=== PATIENT | female | born 1960 | race Caucasian/White ===

== ENCOUNTER → 2017-07-17 | Outpatient (CLI) | payer OTHER ==
[~2017-07-17] MED LIST: ACETAMINOPHEN650 M5 PO; ASPIRIN325 PO; CILOSTAZOL 100100 MG; COREG6.25 MG PO; DIOVAN PO; FISHOIL; FUROSEMIDE 20 M20 M1; GLUCOPHAGE1000 MG OR; GLUCOTROL5 MG PO; IMDUR 30 MG TAB30 M1 PO; JANUMET XR 1001 EACH PO; JANUMET XR 50-1 EACH PO; JANUVIA100 MG; NIACIN400 MG PO; NICORETTE2 MG OR; NITROGLYCERIN0.4 MG SL; NORCO 5-325 TA1 EACH PO; PLAVIX 75 MG TA75 MG OR; POTASSIUM99 M1 PO; SIMVASTATIN80 MG PO; SPIRONOLACTONE25 M1 PO; VITAMIN D-32000 UNIT PO
== END ==
LOC: M.NUC 07:02
DX: R10.13 Epigastric pain (principal)

== ENCOUNTER 2017-12-05 01:49 | Emergency (ER) | payer OTHER ==
[~2017-12-05] VITALS: Ht 154.9 cm; Wt 59.0 kg
[~2017-12-05 01:49] MED LIST changes: -JANUMET XR 1001 EACH PO; -NORCO 5-325 TA1 EACH PO
[2017-12-05] MEDS ORDERED: JANUMET XR 1001 EACH PO (02:05)
[2017-12-05 02:27] LABS: ABSOLUTE EOSINOPHILS 0.1 thou/uL (0.0-0.7); ABSOLUTE LYMPHOCYTES 2.1 thou/uL (0.8-5.3); ABSOLUTE MONOCYTES 0.8 thou/uL (0.0-1.2); ABSOLUTE NEUTROPHILS 6.3 thou/uL (1.6-8.1); BASOPHILS 0.5 %; EOSINOPHILS 0.8 %; HEMATOCRIT 42.2 % (37.0-47.0); HEMOGLOBIN 14.3 gm/dL (12.0-15.0); LYMPHOCYTES 22.6 %; MCH 31.6 pg (26.0-34.0); MCHC 33.9 g/dL (28.0-37.0); MCV 93.2 fL (80.0-100.0); MONOCYTES 8.6 %; MPV 7.9 fl. (7.2-11.1); NUCLEATED RBCS 0 /100WBC; PLATELET COUNT* 285 thou/uL (150-400); POLYS 67.5 %; RBC 4.52 mil/uL (4.20-5.00); RDW-CV 13.8 % (10.5-14.5); WBC 9.3 thou/uL (4.0-11.0)
[2017-12-05 02:35] LABS: ANION GAP 7 mmol/L (7-16); BUN 20 mg/dL (7-18); CHLORIDE 99 mmol/L (98-107); CO2 27 mmol/L (21-32); GLUCOSE 335 mg/dL (70-99); POTASSIUM 4.3 mmol/L (3.5-5.1); SODIUM 133 mmol/L (136-145)
[2017-12-05 02:42] LABS: ALBUMIN 3.3 g/dL (3.4-5.0); ALKALINE PHOSPHATASE 79 U/L (46-116); LIPASE 97 U/L (73-393); SGOT 17 U/L (15-37); SGPT 20 U/L (30-65); TOTAL BILIRUBIN 0.5 mg/dL (<0.1-1.0); TOTAL PROTEIN 6.9 g/dL (6.4-8.2); TROPONIN-I LEVEL <0.06 ng/mL (<0.06)
[2017-12-05 03:46] LABS: URINE BILIRUBIN NEGATIVE (Negative); URINE BLOOD NEGATIVE (Negative); URINE CLARITY CLEAR; URINE COLOR STRAW; URINE GLUCOSE-RANDOM 3+ (Negative); URINE KETONES NEGATIVE (Negative); URINE LEUKOCYTES-REFLEX NEGATIVE (Negative); URINE NITRITE-REFLEX NEGATIVE (Negative); URINE PROTEIN NEGATIVE (Negative); URINE SPECIFIC GRAVITY <= 1.005 (1.005-1.030); URINE UROBILINOGEN 0.2 E.U./dl (0.2-1.0)
[2017-12-05] MEDS ORDERED: NORCO 5-325 TA1 EACH PO (03:52)
[2017-12-05 04:14] VITALS: BP 147/60
--- NOTE | 2017-12-05 13:01 | EKG ---
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1960 Requested By: Shayne Oh Order Number: [id number] MD: Gene Buckley Measurements Intervals [place] Rate: 70 P: 12 MD: 134 QRS: 0 QRSD: 111 T: -82 QT: 433 QTc: 468 Interpretive Statements Sinus rhythm Anterior infarct, old Nonspecific T abnormalities, lateral leads Compared to ECG 08/29/2016 15:04:21 No significant changes Electronically Signed On 12-05-2017 13:01:09 CDT by Gene Buckley [email or web address] <ELECTRONICALLY SIGNED> By: Gene Buckley MD, [facility] 12/05/17 1301 [id number] Gene Buckley MD, FACC /EPI
== END 2017-12-05 04:15 | disposition home or self-care (01) ==
LOC: M.ERS 01:49
PROVIDERS: Family Medicine
DX: R10.13 Epigastric pain (principal); E11.9 Type 2 diabetes mellitus without complications; J44.9 Chronic obstructive pulmonary disease, unspecified; F17.210 Nicotine dependence, cigarettes, uncomplicated; Z95.5 Presence of coronary angioplasty implant and graft; Z88.2 Allergy status to sulfonamides; Z98.890 Other specified postprocedural states

== ENCOUNTER 2017-12-19 17:02 | Inpatient (IN) | payer OTHER ==
[~2017-12-19] VITALS: Ht 154.9 cm; Wt 56.4 kg
[~2017-12-19 17:02] MED LIST changes: +JANUMET XR 1001 EACH PO; +NORCO 5-325 TA1 EACH PO
[2017-12-19 17:25] VITALS: BP 140/70
--- NOTE | 2017-12-19 18:10 | NUR ---
PATIENT CAME TO THE FLOOR A DIRECT ADMIT FROM THE GI DOCIOR. PATIENT HAS STABLE VITALS SINGS ON ROOM AIR, HAS MILD PAIN RIGHT NOW BUT HAS HAD PAIN FOR 1.5 YEARS WITH WORSENING SYMPTOMS OVER THE LAST 2 WEEKS. ROOM ORIENTATIOM AND ADMISSION ASSESSMENT DONE. QUESTIONS ANSWERED FOR PATIENT AND . CALL LIGHT IS IN REACH WILL CONTINUE TO MONITOR. SURGEON IS WITH PATIENT NOW.
[2017-12-19 18:42] LABS: ABSOLUTE BASOPHILS 0.1 thou/uL (0.0-0.2); ABSOLUTE EOSINOPHILS 0.1 thou/uL (0.0-0.7); ABSOLUTE LYMPHOCYTES 1.5 thou/uL (0.8-5.3); ABSOLUTE MONOCYTES 0.7 thou/uL (0.0-1.2); ABSOLUTE NEUTROPHILS 5.2 thou/uL (1.6-8.1); BASOPHILS 0.8 %; EOSINOPHILS 1.4 %; HEMATOCRIT 37.5 % (37.0-47.0); HEMOGLOBIN 12.6 gm/dL (12.0-15.0); LYMPHOCYTES 19.7 %; MCH 30.9 pg (26.0-34.0); MCHC 33.4 g/dL (28.0-37.0); MCV 92.5 fL (80.0-100.0); MONOCYTES 9.5 %; MPV 7.6 fl. (7.2-11.1); NUCLEATED RBCS 0 /100WBC; PLATELET COUNT* 533 thou/uL (150-400); POLYS 68.6 %; RBC 4.06 mil/uL (4.20-5.00); RDW-CV 13.5 % (10.5-14.5); WBC 7.6 thou/uL (4.0-11.0)
[2017-12-19 19:05] LABS: ALBUMIN 2.4 g/dL (3.4-5.0); CALCIUM 8.6 mg/dL (8.5-10.1); CREATININE 0.9 mg/dL (0.6-1.3); MAGNESIUM 1.7 mg/dL (1.8-2.4); PHOSPHORUS* 2.8 mg/dL (2.5-4.9); POTASSIUM 3.4 mmol/L (3.5-5.1); TOTAL BILIRUBIN 0.5 mg/dL (<0.1-1.0); TOTAL PROTEIN 7.2 g/dL (6.4-8.2)
[2017-12-19 21:00] VITALS: BP 114/65
[2017-12-19 21:22] LABS: URINE BLOOD NEGATIVE (Negative); URINE CLARITY CLEAR; URINE COLOR YELLOW; URINE GLUCOSE-RANDOM 3+ (Negative); URINE KETONES 1+ (Negative); URINE LEUKOCYTES-REFLEX NEGATIVE (Negative); URINE NITRITE-REFLEX NEGATIVE (Negative); URINE PROTEIN NEGATIVE (Negative); URINE SPECIFIC GRAVITY 1.025 (1.005-1.030); URINE UROBILINOGEN 0.2 E.U./dl (0.2-1.0)
[2017-12-19 21:33] LABS: ICTOTEST (BILI CONFIRMATORY) Positive (Negative); URINE BILIRUBIN 1+ (Negative)
--- NOTE | 2017-12-20 05:16 | NUR ---
ASSUMED PT CARE AT 1930. NURSING ASSESSMENT COMPLETED AT START OF SHIFT. PT C/O PAIN. ABDOMINAL/BACK PAIN RELIEVED WITH IV MORPHINE. SEE EMAR FOR DOCUMENTATION. PT AFEBRILE THIS SHIFT. HIGH FALL PRECAUTIONS IN PLACE FOR RECENT FALLS AT HOME. HOURLY ROUNDING COMPLETED. CALL LIGHT WITHIN REACH.
[2017-12-20 08:00] VITALS: BP 108/56
--- NOTE | 2017-12-20 15:09 | NUR ---
Nutrition: Pt admitted with abd pain, mesenteric ischemia. Angiogram for Monday. Tolerating diet until then - CHO controlled. BG 277, alb 2.4, prealb 10.2, Na 129, K+ 3.4. RX: glipizide, aspirin, insulin. Wt: 124#. Pt tolerated BKFST this morning. Consider Mild risk . Follow up on diet order and po intake/tolerance Lida, 12/25/17.
[2017-12-20 15:43] VITALS: BP 114/61
--- NOTE | 2017-12-20 17:15 | NUR ---
PT C/O ABD PAIN AND GIVEN IV PAIN MED, STATED RELIEF ON REASSESSMENT. PT WITH POOR APPETITE. NO OTHER C/O. PT ABLE TO MAKE NEEDS KNOWN, CALL LIGHT IN REACH
[2017-12-20 20:25] VITALS: BP 115/59
--- NOTE | 2017-12-21 05:46 | NUR ---
PATIENT REMAINS ALERT AND ORIENTED X4 THROUGHOUT SHIFT. VITALS STABLE ON ROOM AIR. IV PATENT IN THE LEFT UPPER ARM SALINE LOCKED. PAIN MANAGED WITH IV MEDICATION PER ORDERS. DENIES NAUSEA. RESTING COMFORABLY THROUGHOUT THE NIGHT. TRANSFERING WITH STANDBY ASSIST TO THE RESTROOM. CALL LIGHT WITHIN REACH. NURSING WILL CONTINUE TO MONITOR.
[2017-12-21 09:45] VITALS: BP 85/40
[2017-12-21 15:28] VITALS: BP 118/51
--- NOTE | 2017-12-21 16:23 | NUR ---
SPOKE WITH PT. AND . SHE SAID SHE WAS INDEPENDENT AT HOME. DOES NOT USE ANY DME. NO HX OF HH. IS ABLE TO HELP HER IF NEEDED. PT.IS CONCERNED ABOUT PAYING THEIR HOSPITAL BILL. TOLD HER COULD GO TO ADMITTING TO [employer]. SHE ASKED IF THEY WOULD LET THEM MAKE PAYMENTS. ASSURED HER THEY WOULD. PT.DOES NOT FEEL SHE WILL HAVE ANY DISCHARGE NEEDS.
--- NOTE | 2017-12-21 18:16 | NUR ---
PATIENT HAS BEEN ALERT AND ORIENTED TODAY VERY PLEASANT. UP AD [place]RI[place] IN ROOM, CALLS FOR HELP IF NEEDED. SOME PAIN AND NAUSEA TODAY THAT IS SOMEWHAT CONTROLLED WITH MEDICATIONS. CALL LIGHT IS IN REACH, WILL CONTINUE TO MONITOR.
[2017-12-21 20:00] VITALS: BP 99/54
[2017-12-22] VITALS (14 sets, daily range): BP systolic 86–119; BP diastolic 41–61
--- NOTE | 2017-12-22 05:54 | NUR ---
Alert and oriented x 4. She is up indepndently in her room. Vitals are stable,BP slightly low but she's unsymptomatic. She's voiding well. refusing pain meds at this time. IV in her right forearm is functioning well. She's had nothing by mouth since midnight. Consents signed for angiogram today.
--- NOTE | 2017-12-22 16:20 | NUR ---
PATIENT CAME FROM VIA BED IN STABLE CONDITION. VITAL SIGNS STABLE ON ROOM AIR. FLUIDS RUNNING PER ORDERS. PATIENT IS LAYING FLAT, DRESSING IS CLEAN DRY AND INTACT, PULSE IS STRONG, SENSATION IN LEG IS INTACT. NO COMPLAINTS OF ANY KIND AT THIS TIME. CALL LIGHT IS IN REACH, INSTRUCTIONS GONE OVER WITH PATIENT QUESTIONS ANSWERED. WILL CONTINUE TO MONITOR.
--- NOTE | 2017-12-22 18:26 | NUR ---
PATIIENT HAS BEEN ALERT AND ORIENTED ALL DAY, WENT FOR A PROCEDURE AND HAS REMAINED STABLE SINCE. PATIENT HAS BEEN LAYING FLAT SINCE COMING BACK FROM IR, NO COMPLAINTS OF PAIN TODAY. APPETITE HAS BEEN GOOD SINCE PROCEDURE WAS DONE. VITAL SIGNS HAVE BEEN STABLE ON ROOM AIR. CALL LIGHT IS IN REACH, WILL CONTINUE TO MONITOR.
[2017-12-23 04:00] VITALS: BP 91/51
[2017-12-23 04:27] LABS: HEMATOCRIT 28.5 % (37.0-47.0); HEMOGLOBIN 9.7 gm/dL (12.0-15.0)
[2017-12-23 04:30] LABS: MCH 31.3 pg (26.0-34.0); MCV 92.2 fL (80.0-100.0); MPV 7.5 fl. (7.2-11.1); RBC 3.09 mil/uL (4.20-5.00); RDW-CV 13.6 % (10.5-14.5); WBC 4.7 thou/uL (4.0-11.0)
[2017-12-23 04:54] LABS: CALCIUM 7.2 mg/dL (8.5-10.1); CREATININE 0.8 mg/dL (0.6-1.3); MAGNESIUM 1.4 mg/dL (1.8-2.4)
--- NOTE | 2017-12-23 06:49 | NUR ---
ASSUMED PT CARE AT 2014. NURSING ASSESSMENT COMPLETED. PT VOICED NO CONCERNS THIS SHIFT. RIGHT GROIN SITE CDI, SOFT, NO HEMATOMA PRESENT, +2 PEDAL PULSES. HOURLY ROUNDING COMPLETED. CALL LIGHT WITHIN REACH. PT AFEBRILE THIS SHIFT.
[2017-12-23 09:00] VITALS: BP 87/48
[2017-12-23 16:01] VITALS: BP 107/54
--- NOTE | 2017-12-23 18:55 | NUR ---
PATIENT REMAINED ALERT AND ORIENTED X'S 4. VITAL SIGNS AND SPO2 STABLE. IV CLEAN, FLUIDS INFUSING. PAIN WELL CONTROLLED WITH PAIN MEDS. VOIDED WITHOUT ISSUE. TOLERATED DIET, NO NAUSEA AND VOMITING. COMPLETED HOURLY ROUNDING. CALL LIGHT WITHIN REACH, WILL CONTINUE TO MONITOR.
[2017-12-23 21:00] VITALS: BP 94/49
[2017-12-24 04:46] LABS: HEMATOCRIT 28.7 % (37.0-47.0); HEMOGLOBIN 9.9 gm/dL (12.0-15.0); MCH 31.6 pg (26.0-34.0); MCHC 34.3 g/dL (28.0-37.0); MCV 92.1 fL (80.0-100.0); MPV 7.7 fl. (7.2-11.1); RBC 3.12 mil/uL (4.20-5.00); RDW-CV 13.7 % (10.5-14.5); WBC 5.4 thou/uL (4.0-11.0)
[2017-12-24 05:10] LABS: CREATININE 0.8 mg/dL (0.6-1.3); MAGNESIUM 2.4 mg/dL (1.8-2.4); POTASSIUM 3.9 mmol/L (3.5-5.1)
--- NOTE | 2017-12-24 06:58 | NUR ---
PATIENT SLEPT MOST OF THE NIGHT. IV REMAINS SALINE LOCKED. IV MAG WAS GIVEN PER PROTOCOL MAG IS NOW 2.4. PATIENT IS SUPPOSED TO BE DISCHARGED HOME TODAY. WILL CONTINUE TO MONITOR.
[2017-12-24 08:00] VITALS: BP 95/50
[2017-12-24 09:23] VITALS: BP 94/49
[2017-12-24 09:58] VITALS: BP 94/49
--- NOTE | 2017-12-24 09:58 | NUR ---
PATIENT LEFT UNIT AMBULATORY WITH NURSING STAFF. IV DC'D. EDUCATED PATIENT ON NEW MED SCRIPTS AND DISCHARGE INSTRUCTIONS. PATIENT AND SPOUSE VERBALIZED UNDERSTANDING. ALL BELONGINGS LEFT WITH PATIENT.
--- NOTE | 2017-12-26 11:37 | OP ---
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 OPERATION: 1. Ultrasound-guided access to the right common femoral artery. 2. Aortogram. 3. Selective SMA angiogram. 4. SMA angioplasty and stent with a Bard 6 x 26 and a 6 x 16 LifeStream stents. SURGEON: Rosendo Hartman DO. EXPLOSIVE ORDNANCE HANDLER: Isaac Szymanski, PGY3. ANESTHESIA: Sedation with local. ESTIMATED BLOOD LOSS: 25 mL. FLUIDS: 75 crystalloid. URINE OUTPUT: None. SPECIMENS: None. COMPLICATIONS: None. IMPLANTS: Again, was a Bard LifeStream stent in the superior mesenteric artery, 6 x 26 and a 6 x 16. FINDINGS: Ultrasound demonstrated right common femoral artery to be soft and compressible, suitable for access. Initial aortogram demonstrated what appeared to be occluded celiac and superior mesenteric arteries. Bilateral renal arteries are patent without significant stenosis. 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 Following SMA angioplasty and stent, there was excellent flow through the SMA, filling the mesenteric arcade with no extravasation. The [address] [address] OPERATIVE REPORT Name: NATHALIA GOLD Room: [address] IN [facility].#: [id number] Admission: 12/19/17 Attend Phys: Azalea Miranda Discharge: 12/24/17 Date of : 58 Report #: [id number] celiac artery was then retrograde filling through the GDA briskly. CLINICAL HISTORY: The patient is a 57-year-old woman suffering from chronic mesenteric ischemia and had developed in situ thrombosis within the last couple of weeks, has had significantly worsened postprandial abdominal pain. This was confirmed with a CT angiogram at outside facility. She was brought in today for elective SMA angioplasty and stenting. DESCRIPTION OF PROCEDURE: After informed consent was obtained, the patient was taken to the angio suite, placed on the angio bed in supine position. She was administered sedation by the nurse at my discretion. Appropriate vitals were monitored for a total of 90 minutes. The bilateral groins were then prepped and draped in usual sterile fashion. Full timeout was performed identifying correct patient and procedure. Using ultrasound guidance, the right common femoral artery was identified. The skin and subcutaneous tissues were anesthetized with local anesthetic. Using micropuncture technique, the right common femoral artery was accessed and the ultrasound images were preserved. Using Seldinger technique, I then exchanged out for a 6-Botswanan sheath and a Bentson wire, passed the flush catheter over the Bentson wire into the distal aorta. I performed the aortogram with the findings noted above. I then exchanged out for a 6-Botswanan Herbert sheath and initially Kumpe catheter for multiple wire and catheter attempts. I then changed out for a Cobra catheter. I was then able to engage the superior mesenteric artery, I passed a wire distally into the superior mesenteric artery followed by the catheter. Catheter angiogram confirmed intraluminal position within the SMA. I then advanced the wire into the distal mesenteric arcade and advanced the sheath over the catheter with the position in the SMA. Again, followup imaging confirmed intraluminal position within the SMA with no dissection. At this point, I then positioned a 6 x 22 LifeStream stent just proximal to the first mesenteric branch, deployed this in a standard fashion. I then backed the sheath up to the origin of the superior mesenteric artery and then placed a 6 x 16 LifeStream stent at this position extending it to 3 mm into the aorta. I then post-dilated this, the origin with a 7 mm Ultraverse balloon with a good result. Followup imaging demonstrated excellent flow through the SMA with retrograde filling of the celiac access. There were no obvious signs of embolization or extravasation on the mesenteric angiogram. Satisfied with the result, the sheath was backed into the right external iliac artery. Angiogram was performed through the sheath to confirm access position. I then exchanged out for a short 6-Botswanan sheath and deployed a 6-Botswanan Mynx closure device in standard fashion. It should be noted that I did administer 7000 units of intravenous heparin before advancing initial sheath in and this was redosed with 1000 units an hour. Once the next device was deployed, I then partially reversed the heparin with 40 mg protamine. Manual pressure was held for 10 minutes. Once hemostasis was ensured, sterile dressing was applied. All [address] [address] OPERATIVE REPORT Name: NATHALIA GOLD: [address] [place] .R.#: [id number] Admission: 12/19/17 Attend Phys: Azalea Miranda Discharge: 12/24/17 Date of : 58 Report #: [id number] sponge, sharp and instrument counts reported correct x 2. She tolerated the procedure well and was transferred back to room in stable condition. <ELECTRONICALLY SIGNED> By: Rosendo Hartman DO 12/26/17 1137 [id number] [id number] Hartman DO /nt
--- NOTE | 2017-12-28 13:22 | CON ---
[address] [address] CONSULTATION Name: NATHALIA GOLD Ji Room: [address] IN M.R.#: [id number] Admission: 12/19/17 Attend Phys: Azalea Miranda Discharge: 12/24/17 Date of : 58 Report #: [id number] THIS REPORT FOR: //name// CC: Kayla Gomez HISTORY OF PRESENT ILLNESS: This is a pleasant 57-year-old female who is known to our service from her previous admissions and outpatient consultation. The patient initially presented to us in July of this year with a chief complaint of abdominal pain. At that time, EGD and colonoscopy were performed. The EGD showed a small hiatal hernia. The colonoscopy showed a single ulceration in the proximal transverse colon with biopsies reporting acute ulceration. She then had a HIDA scan, which showed 89% gallbladder EF. Subsequently, the patient underwent a CT in December of this year when she visited the ER for abdominal pain. The CT scan showed air collection over the liver and a small amount of air within the wall of the cecum, suggestive of an ischemic process. The patient reports she has had intermittent abdominal pain for the last 1-1/2 years and this has progressively worsened over the course of time. She reports that the pain is precipitated by eating food or drinking water and can be sharp and 10/10 in severity. When the patient does not eat or drink anything the pain is still present, but is very low in intensity. She also reports chronic constipation and inability to pass stool for 4-5 days at a time. PAST MEDICAL HISTORY: The patient has history of asthma, coronary artery disease, COPD, diabetes, hypertension, and hyperlipidemia. PAST SURGICAL HISTORY: She had a cardiac catheterization performed in the past. SOCIAL HISTORY: The patient quit smoking about a month back. Denies alcohol or recreational drug use. REVIEW OF SYSTEMS: A comprehensive 10-point review of systems is negative except for those mentioned in the HPI. FAMILY HISTORY: Reviewed and not significant. PHYSICAL EXAMINATION: VITAL SIGNS: Temperature 36.7, pulse rate 88, respirations 18, blood pressure 114/61. GENERAL: The patient is alert, awake, oriented x 3. Mucous membranes are moist. There is no congestion. CHEST: Lungs clear to auscultation bilaterally. HEENT: Pupils are equal, round, reactive to light and accommodation. CARDIOVASCULAR: Rate and rhythm regular. S1, S2 present. LUNGS: [place] [address] CONSULTATION Name: NATHALIA GOLD Room: [address]#: [id number] Admission: 12/19/17 Attend Phys: Azalea Miranda Discharge: 12/24/17 Date of : 58 Report #: [id number] ABDOMEN: Soft. There is no distention, no tenderness. Bowel sounds are normal. EXTREMITIES: Warm, well perfused. NEUROLOGIC: There is no focal neurological deficit. SKIN: Warm and dry. LABORATORY DATA: Hemoglobin 7.6, hematocrit 12.6, hematocrit 37.5, WBC count 7.6 and platelet count 533. Sodium 129, potassium 3.4, chloride 93, bicarbonate 30, BUN 15, creatinine 0.9, total bilirubin 0.5, AST 34, ALT 34, alkaline phosphatase 88. IMAGING: The patient had a CT abdomen angiography performed at [facility]. 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 The inferior mesenteric artery origin is patent. There is collateral flow to the liver from splenic arteries consistent with ischemia and it is a vascular flow. Findings would support the clinical diagnosis of mesenteric ischemia with over 50% stenosis of the left renal ostia, occlusion of the left internal iliac artery, 50% stenosis of the common femoral arteries as well as left common iliac artery. Correlate with any lower extremity ischemia and claudication, 40% stenosis of the abdominal aorta. The inferior mesenteric artery origin diffusely increased metabolic disorder, correlate with appropriate laboratory analysis. ASSESSMENT: This is a very pleasant 57-year-old female who is presenting with chronic abdominal pain for the last 1-1/2 years, noted to have mesenteric ischemia on CT angiography abdomen performed 2 days back. 1. Mesenteric ischemia. PLAN: Vascular Surgery consulted for management. They have recommended a mesenteric angiography for further management. The GI Service will continue to follow along. <ELECTRONICALLY SIGNED> By: Jim Mclain MD 12/28/17 1322 [id number] [id number] Mclain MD /nt
== END 2017-12-24 10:01 | disposition home or self-care (01) | DRG 356 ==
LOC: M.ORTHSURG 17:02
PROVIDERS: Family Medicine; Surgery; ADMIT Internal Medicine
PROC: 047 Lower Arteries, Dilation (ICD-10-PCS; principal; 2017-12-22)
PROC: B41D1ZZ Fluoroscopy of Aorta and Bilateral Lower Extremity Arteries using Low Osmolar Contrast (ICD-10-PCS; principal; 2017-12-22)
DX: K55.039 Acute (reversible) ischemia of large intestine, extent unspecified (principal); E43 Unspecified severe protein-calorie malnutrition; I81 Portal vein thrombosis; J45.909 Unspecified asthma, uncomplicated; I25.10 Atherosclerotic heart disease of native coronary artery without angina pectoris; J44.9 Chronic obstructive pulmonary disease, unspecified; E11.9 Type 2 diabetes mellitus without complications; I10 Essential (primary) hypertension; E83.42 Hypomagnesemia; I73.9 Peripheral vascular disease, unspecified; E78.5 Hyperlipidemia, unspecified; Z95.810 Presence of automatic (implantable) cardiac defibrillator; Z68.23 Body mass index [BMI] 23.0-23.9, adult; Z86.718 Personal history of other venous thrombosis and embolism; I25.2 Old myocardial infarction; Z95.5 Presence of coronary angioplasty implant and graft; Z87.891 Personal history of nicotine dependence; Z98.42 Cataract extraction status, left eye; Z98.41 Cataract extraction status, right eye; Z79.82 Long term (current) use of aspirin; Z79.899 Other long term (current) drug therapy; Z88.2 Allergy status to sulfonamides; Z82.49 Family history of ischemic heart disease and other diseases of the circulatory system; Z80.8 Family history of malignant neoplasm of other organs or systems

== ENCOUNTER → 2017-12-29 | Outpatient (CLI) | payer OTHER ==
[2017-12-29 11:19] LABS: ABSOLUTE MONOCYTES 0.6 thou/uL (0.0-1.2); ABSOLUTE NEUTROPHILS 3.1 thou/uL (1.6-8.1); BASOPHILS 0.5 %; EOSINOPHILS 0.8 %; HEMATOCRIT 32.3 % (37.0-47.0); HEMOGLOBIN 10.8 gm/dL (12.0-15.0); LYMPHOCYTES 20.4 %; MCH 31.1 pg (26.0-34.0); MCHC 33.5 g/dL (28.0-37.0); MCV 92.9 fL (80.0-100.0); MONOCYTES 12.9 %; MPV 7.1 fl. (7.2-11.1); NUCLEATED RBCS 0 /100WBC; PLATELET COUNT* 411 thou/uL (150-400); POLYS 65.4 %; RBC 3.48 mil/uL (4.20-5.00); RDW-CV 13.8 % (10.5-14.5); WBC 4.7 thou/uL (4.0-11.0)
[2017-12-29 11:31] LABS: ALBUMIN 1.9 g/dL (3.4-5.0); CALCIUM 8.1 mg/dL (8.5-10.1); CREATININE 1.1 mg/dL (0.6-1.3); MAGNESIUM 1.7 mg/dL (1.8-2.4); PHOSPHORUS* 4.4 mg/dL (2.5-4.9); POTASSIUM 4.6 mmol/L (3.5-5.1); TOTAL BILIRUBIN 0.3 mg/dL (<0.1-1.0); TOTAL PROTEIN 6.1 g/dL (6.4-8.2)
== END ==
LOC: M.ULTRA 10:37
PROVIDERS: Family Medicine
DX: M79.604 Pain in right leg (principal); M79.89 Other specified soft tissue disorders; J44.9 Chronic obstructive pulmonary disease, unspecified; I95.9 Hypotension, unspecified; H26.9 Unspecified cataract; E11.9 Type 2 diabetes mellitus without complications; Z92.89 Personal history of other medical treatment